=== PATIENT | female | born 1985 | race Caucasian/White ===

== ENCOUNTER 2023-05-20 16:53 | Emergency (ER) | payer OTHER ==
[~2023-05-20] VITALS: Ht 162.6 cm; Wt 90.7 kg
[2023-05-20 17:05] VITALS: BP_SYST 122; PULSE 73; RESP 18; TEMP 98.3; O2SAT 98
[2023-05-20] MEDS ORDERED: IBUP-1969 PO (17:56)
[2023-05-20] MEDS ORDERED: IBUPROFEN 800 MG TABLET PO ONE (18:00)
[2023-05-20 18:17] VITALS: BP_SYST 122; PULSE 73; RESP 18; TEMP 98.3; O2SAT 98
== END 2023-05-20 18:17 | disposition home or self-care (01) ==
LOC: SED 16:53
DX: S83.92XA Sprain of unspecified site of left knee, initial encounter (principal); S70.02XA Contusion of left hip, initial encounter; Z79.899 Other long term (current) drug therapy; W01.0XXA Fall on same level from slipping, tripping and stumbling without subsequent striking against object, initial encounter; Y93.89 Activity, other specified; Y92.89 Other specified places as the place of occurrence of the external cause; Y99.8 Other external cause status
CPT/HCPCS: 73502; 73564; 81025; 99284